=== PATIENT | male | born 1935 | race Caucasian/White ===

== ENCOUNTER 2019-02-13 09:44 | Inpatient (IN) ==
[2019-02-13 10:20] LABS: Basophils % 0.5 % (0.0-0.8); Eosinophils # 0.2 10*3/uL (0.0-0.87); Eosinophils % 3.3 % (0.00-10.9); Hemoglobin 13.8 GM/DL (14.0-18.0); Immature Granulocytes % 0.5 %; Immature Granulocytes Absolute 0.03 #; Lymphocytes # 0.7 10*3/uL (1.4-4.0); Lymphocytes % 10.2 % (21.2-54.2); Mean Corpuscular HGB Conc 32.9 GM/DL (32-36); Mean Corpuscular Volume 94.2 FL (87-102); Mean Platelet Volume 10.2 FL (9.6-12.0); Monocytes % 6.8 % (1.7-12.7); Neutrophils % 78.7 % (38.7-73.9); Platelet Count 120 T/CUMM (130-400); Red Blood Count 4.46 MC/CUMM (3.8-5.5); Red Cell Distribution Width 13.4 % (9.3-17.3); White Blood Count 6.7 T/CUMM (4-12)
[2019-02-13 10:24] LABS: INR 0.9; PT Patient Result 10.2 SECS (9.6-12.2)
[2019-02-13 10:50] LABS: Alanine Aminotransferase 27 U/L (16-61); Albumin 3.7 G/DL (3.4-5.0); Alkaline Phosphatase 92 U/L (45-117); Aspartate Amino Transferase 15 U/L (0-37); Blood Urea Nitrogen 21 MG/DL (7-18); Calcium 8.7 MG/DL (8.5-10.1); Estimated Glom Filtration Rate 61 ML/MIN; Glucose 199 MG/DL (74-106); Osmolality,Calculated 289.3 MOS/KG (273-304); Total Protein 6.8 G/DL (6.4-8.3); Troponin I < 0.015 NG/ML (0.00-0.045)
[2019-02-13] MEDS ORDERED: LACTULOSE 20 GM/30 ML UDCUP PO PRN (12:23)
[2019-02-13] MEDS ORDERED: DOCUSATE SODIUM 100 MG CAPSULE PO PRN (12:23)
[2019-02-13] MEDS ORDERED: ONDANSETRON 4 MG/2 ML VIAL IV PRN (12:23)
[2019-02-13] MEDS ORDERED: ENOXAPARIN 40 MG/0.4 ML SYRINGE SUBCUT SCH (12:30)
[2019-02-13] MEDS ORDERED: DEXTROSE 50% 25 GM/50 ML VIAL IV PRN (12:43)
[2019-02-13] MEDS ORDERED: GLUCAGON 1 MG VIAL IM PRN (12:43)
[2019-02-13 13:19] LABS: Apearance,Urine Slightly Hazy (Clear); Bacteria,Urine Occasional /HPF (Few); Bilirubin,Urine Negative (Negative); Blood, Urine Negative (Negative); Glucose,Urine (UA) Negative (Negative); Hyaline Casts,Urine 3 /LPF (0-3); Ketones,Urine Negative (Negative); Mucus,Urine Few /LPF (Occasional); Nitrite,Urine Negative (Negative); Protein,Urine Negative; RBC,Urine 6 /HPF (0-4); Squamous Epithelial Cell,Urine Occasional /HPF (0-10); Urine Color Yellow (Yellow); Urine Specific Gravity 1.019 (1.001-1.035); Urine Urobilinogen < 2.0 EU/DL (0.2-1.0); WBC,Urine 2 /HPF (0-6)
[2019-02-13] MEDS: SODIUM CHLORIDE 0.45% 1,000 ML IV SCH (14:08)
[2019-02-13] MEDS ORDERED: ENOXAPARIN 100 MG/ML SYRINGE SUBCUT ONE (14:24)
[2019-02-13] MEDS: ASPIRIN EC 81 MG TABLET PO SCH (14:57)
[2019-02-13] MEDS: ISOSORBIDE MONONITRATE 30 MG TABLET PO SCH (14:57)
[2019-02-13] MEDS: INSULIN LISPRO 100 UNIT/ML SUBCUT SCH ×2 (16:51→20:57)
[2019-02-13] MEDS: ATORVASTATIN 20 MG TABLET PO SCH (20:56)
[2019-02-13] MEDS: carvediloL 3.125 MG TABLET PO SCH (20:56)
[2019-02-13] MEDS: LISINOPRIL 2.5 MG TABLET PO SCH (20:56)
[2019-02-13] MEDS: GABAPENTIN 300 MG CAPSULE PO SCH (20:56)
[2019-02-13] MEDS: SERTRALINE 50 MG TABLET PO SCH (20:57)
[2019-02-13] MEDS: ACETAMINOPHEN 325 MG TABLET PO PRN (22:00)
[2019-02-14] MEDS: SODIUM CHLORIDE 0.45% 1,000 ML IV SCH ×2 (02:41→13:37)
[2019-02-14 05:31] LABS: Basophils # 0.1 10*3/uL (0.0-0.2); Eosinophils # 0.3 10*3/uL (0.0-0.87); Eosinophils % 5.8 % (0.00-10.9); Hematocrit 34.2 VOL% (42.0-52.0); Hemoglobin 11.3 GM/DL (14.0-18.0); Immature Granulocytes % 0.6 %; Immature Granulocytes Absolute 0.03 #; Lymphocytes % 19.4 % (21.2-54.2); Mean Corpuscular Volume 93.4 FL (87-102); Mean Platelet Volume 10.6 FL (9.6-12.0); Monocytes % 10.8 % (1.7-12.7); Neutrophils % 62.4 % (38.7-73.9); Platelet Count 107 T/CUMM (130-400); Red Blood Count 3.66 MC/CUMM (3.8-5.5); Red Cell Distribution Width 13.4 % (9.3-17.3)
[2019-02-14 05:58] LABS: Albumin 3.1 G/DL (3.4-5.0); Bilirubin,Total 1.4 MG/DL (0.2-1.0); Calcium 8.4 MG/DL (8.5-10.1); Risk Ratio 3.24; Thyroid Stimulating Hormone 1.2 uIU/ml (0.358-3.74); Total Protein 5.7 G/DL (6.4-8.3); VLDL CHOLESTEROL 27.6 MG/DL
[2019-02-14] MEDS: INSULIN LISPRO 100 UNIT/ML SUBCUT SCH ×4 (08:13→20:34)
[2019-02-14] MEDS ORDERED: TAMSULOSIN 0.4 MG CAPSULE PO SCH (09:00)
[2019-02-14] MEDS: carvediloL 3.125 MG TABLET PO SCH ×2 (09:08→20:35)
[2019-02-14] MEDS: ISOSORBIDE MONONITRATE 30 MG TABLET PO SCH (09:08)
[2019-02-14] MEDS: PANTOPRAZOLE 40 MG TABLET PO SCH (09:08)
[2019-02-14] MEDS: ASPIRIN EC 81 MG TABLET PO SCH (09:08)
[2019-02-14] MEDS: ACETAMINOPHEN 325 MG TABLET PO PRN (13:51)
[2019-02-14] MEDS: LISINOPRIL 2.5 MG TABLET PO SCH (20:35)
[2019-02-14] MEDS: GABAPENTIN 300 MG CAPSULE PO SCH (20:35)
[2019-02-14] MEDS: ATORVASTATIN 20 MG TABLET PO SCH (20:35)
[2019-02-14] MEDS: SERTRALINE 50 MG TABLET PO SCH (20:36)
[2019-02-15] MEDS: SODIUM CHLORIDE 0.45% 1,000 ML IV SCH (01:28)
[2019-02-15 04:47] LABS: Basophils % 0.9 % (0.0-0.8); Eosinophils # 0.2 10*3/uL (0.0-0.87); Eosinophils % 5.3 % (0.00-10.9); Hematocrit 33.6 VOL% (42.0-52.0); Hemoglobin 11.6 GM/DL (14.0-18.0); Immature Granulocytes % 0.4 %; Immature Granulocytes Absolute 0.02 #; Lymphocytes # 0.9 10*3/uL (1.4-4.0); Lymphocytes % 19.7 % (21.2-54.2); Mean Corpuscular HGB Conc 34.5 GM/DL (32-36); Mean Corpuscular Volume 91.1 FL (87-102); Mean Platelet Volume 10.8 FL (9.6-12.0); Monocytes % 10.1 % (1.7-12.7); Neutrophils % 63.6 % (38.7-73.9); Platelet Count 102 T/CUMM (130-400); Red Blood Count 3.69 MC/CUMM (3.8-5.5); Red Cell Distribution Width 13.2 % (9.3-17.3); White Blood Count 4.6 T/CUMM (4-12)
[2019-02-15 05:05] LABS: Albumin 3.1 G/DL (3.4-5.0); Calcium 8.3 MG/DL (8.5-10.1); Osmolality,Calculated 280.5 MOS/KG (273-304); Total Protein 5.8 G/DL (6.4-8.3)
[2019-02-15 05:09] LABS: Platelet Estimate Decreased; Polychromasia Few
[2019-02-15] MEDS: PANTOPRAZOLE 40 MG TABLET PO SCH (09:18)
[2019-02-15] MEDS: ISOSORBIDE MONONITRATE 30 MG TABLET PO SCH (09:18)
[2019-02-15] MEDS: ASPIRIN EC 81 MG TABLET PO SCH (09:18)
[2019-02-15] MEDS: carvediloL 3.125 MG TABLET PO SCH (09:18)
[2019-02-15] MEDS: INSULIN LISPRO 100 UNIT/ML SUBCUT SCH ×2 (09:18→12:50)
[2019-02-15 12:16] VITALS: BP 139/76
[2019-02-15] MEDS ORDERED: ALFUZOSIN 10 MG TABLET PO SCH (21:00)
== END 2019-02-15 15:30 | disposition home or self-care (01) | DRG 312 ==
LOC: EDUNIT# → EDBD → N.ED 09:44 → N.EDINP 12:23 → SUATTDRO 12:24 → N.TELEN 13:00
PROVIDERS: ADMIT Internal Medicine; ATTEND Internal Medicine

== ENCOUNTER 2021-11-13 13:19 | Observation (INO) ==
[2021-11-13] MEDS ORDERED: APIXABAN 5 MG TABLET PO STA (13:47)
[2021-11-13 13:59] LABS: Basophils % 0.5 % (0.0-0.8); Eosinophils # 0.4 10*3/uL (0.0-0.87); Eosinophils % 8.1 % (0.00-10.9); Hematocrit 33.1 VOL% (42.0-52.0); Hemoglobin 10.8 GM/DL (14.0-18.0); Immature Granulocytes % 0.5 %; Immature Granulocytes Absolute 0.02 #; Lymphocytes # 0.7 10*3/uL (1.4-4.0); Lymphocytes % 15.8 % (21.2-54.2); Mean Corpuscular HGB Conc 32.6 GM/DL (32-36); Mean Corpuscular Volume 88.5 FL (87-102); Mean Platelet Volume 10.8 FL (9.6-12.0); Monocytes # 0.4 10*3/uL (0.11-0.8); Monocytes % 9.7 % (1.7-12.7); Neutrophils % 65.4 % (38.7-73.9); Platelet Count 122 T/CUMM (130-400); Red Blood Count 3.74 MC/CUMM (3.8-5.5); Red Cell Distribution Width 13.9 % (9.3-17.3); White Blood Count 4.3 T/CUMM (4-12)
[2021-11-13 14:16] LABS: Albumin 3.4 G/DL (3.4-5.0); Bilirubin,Total 0.6 MG/DL (0.20-1.00); Calcium 8.7 MG/DL (8.5-10.1); Osmolality,Calculated 282.3 MOS/KG (273-304); Potassium 4.4 MMOL/L (3.5-5.1); Total Protein 6.2 G/DL (6.4-8.2)
[2021-11-13] MEDS ORDERED: hydrALAZINE 20 MG/1 ML VIAL IV STA (14:33)
[2021-11-13] MEDS ORDERED: hydrALAZINE 20 MG/1 ML VIAL IM STA (14:33)
[2021-11-13 14:35] LABS: Ovalocytes Few; Tear Drop Cells Slight
[2021-11-13 14:36] LABS: Anisocytosis Slight
[2021-11-13] MEDS ORDERED: GLUCAGON 1 MG VIAL IM PRN (14:42)
[2021-11-13] MEDS ORDERED: ONDANSETRON 4 MG/2 ML VIAL IV PRN (14:42)
[2021-11-13] MEDS ORDERED: DEXTROSE 10% 250 ML BAG IV PRN (14:42)
[2021-11-13] MEDS: ISOSORBIDE MONONITRATE 30 MG TABLET PO SCH (16:34)
[2021-11-13] MEDS: carvediloL 3.125 MG TABLET PO SCH ×2 (16:34→21:40)
[2021-11-13] MEDS: SODIUM CHLORIDE 0.9% 1,000 ML IV SCH (16:39)
[2021-11-13] MEDS: INSULIN REGULAR 100 UNIT/ML SUBCUT SCH ×2 (18:47→21:41)
[2021-11-13] MEDS ORDERED: GABAPENTIN 300 MG CAPSULE PO SCH (21:00)
[2021-11-13] MEDS ORDERED: ALFUZOSIN 10 MG TABLET PO SCH (21:00)
[2021-11-13] MEDS ORDERED: SERTRALINE 50 MG TABLET PO SCH (21:00)
[2021-11-13] MEDS ORDERED: ATORVASTATIN 20 MG TABLET PO SCH (21:00)
[2021-11-13] MEDS: APIXABAN 5 MG TABLET PO SCH (21:40)
[2021-11-14] MEDS: SODIUM CHLORIDE 0.9% 1,000 ML IV SCH (04:58)
[2021-11-14] MEDS: ISOSORBIDE MONONITRATE 30 MG TABLET PO SCH (08:52)
[2021-11-14] MEDS: APIXABAN 5 MG TABLET PO SCH (08:52)
[2021-11-14] MEDS: carvediloL 3.125 MG TABLET PO SCH (08:53)
[2021-11-14] MEDS: INSULIN REGULAR 100 UNIT/ML SUBCUT SCH ×3 (08:54→17:13)
[2021-11-14] MEDS ORDERED: POLYETHYLENE GLYCOL POWDER 17 GM PACK PO SCH (09:00)
[2021-11-14] MEDS ORDERED: ASPIRIN EC 81 MG TABLET PO SCH (09:00)
[2021-11-14] MEDS ORDERED: PANTOPRAZOLE 40 MG TABLET PO SCH (09:00)
[2021-11-14 12:06] VITALS: BP 131/60
== END 2021-11-14 16:48 | disposition home or self-care (01) ==
LOC: N.EDINP 13:19 → N.ED 13:19 → SUATTDRO 14:42 → N.TELEN 15:43
PROVIDERS: ADMIT Family Medicine; ATTEND Family Medicine